=== PATIENT | male | born 1975 | race Caucasian/White ===

== ENCOUNTER 2018-04-08 19:35 | Inpatient (IN) | payer MEDICAID ==
--- NOTE | 2018-04-08 20:19 | EDPHY ---
General - History Smoking Status: Never smoked Time Seen by Provider: 04/08/18 19:51 Narrative: CHIEF COMPLAINT: Leg pain, fever HISTORY OF PRESENT ILLNESS: Patient presents with complaints of right leg pain, redness and swelling. He says he fell approximately 1 month ago, sustaining injuries to the arms and legs. Soon after, he felt he developed infection the area. He was seen by primary care physician 3-4 weeks ago and prescribed doxycycline for infection. He took this for 10-14 days to completion. He was feeling well until 3 days after that. At that time he developed some increasing redness, pain and swelling, primarily to the right lower extremity. There are other small areas as well to the left lower extremity and right knee. He has no difficulty bending the knee but he has significant pain when he attempts to ambulate on the right leg. No numbness or tingling. No fever. He does feel sick. No other associated complaints or modifying factors. Tetanus up-to-date REVIEW OF SYSTEMS: Ten systems reviewed and are negative unless otherwise noted in the HPI PCP: [facility] SPECIALISTS: None PAST MEDICAL HISTORY: Hypertension PAST SURGICAL HISTORY: No recent surgeries. Remote orthopedic surgery SOCIAL HISTORY: Admits to daily heroin use. Denies tobacco use. Occasional alcohol use. Occasional marijuana use. FAMILY HISTORY: noncontributory EXAMINATION General Appearance: Alert, no distress . Well-developed well-nourished Head: normocephalic, atraumatic Eyes: Pupils equal and round, no conjunctival pallor or injection ENT, Mouth: Mucous membranes moist Neck: Normal inspection, supple, non-tender Respiratory: Lungs are clear to auscultation Cardiovascular: Regular rate and rhythm. No murmur Gastrointestinal: Abdomen is soft and nontender Back: non-tender, no bony abnormalities Neurological: A&O, nonfocal, normal gait Skin: Warm and dry. Multiple tattoos. There is extensive cellulitic change the right anterior lower extremity below the knee. There is non circumferential cellulitis. There is edema to right lower extremity. There is several other small areas circumscribed cellulitis to the right and left lower extremities without any fluctuance or signs of abscess. I do not appreciate any evidence of septic joint to the lower extremities. Extremities: Edema and mild tenderness of the right calf and lower extremity generally. There is no bony tenderness of the knee. He has full flexion extension of the right knee both passive and active without pain. Neurovascular intact distal to the areas of cellulitic changes Psychiatric: Mood and affect normal DIFFERENTIAL DIAGNOSES: Including but not limited to cellulitis, DVT, abscess, septic joint, sepsis MDM: 8:10 p.m. Cellulitis of the right lower extremity with tachycardia and outpatient failure of oral antibiotics. He will likely need admission the hospital for failure of outpatient therapy at a minimum. I will rule out DVT with ultrasound. Blood cultures and lactic acid are ordered. IV fluid will be administered if he does meet criteria for sepsis. IV antibiotics will be administered. He is in no acute distress. 8:50 p.m. Case discussed with Dr. Schneider. She recommends Ancef for the cellulitis. I have canceled by original order a vancomycin, and he has not yet received any of this. 9:10 p.m. Plain films of the knee and tib-fib have been read by radiologist as swelling but no acute osseous findings. 9:23 p.m. This case discussed with radiologist Dr. Becerra. There is no DVT from the popliteal superior. The calf veins are not visualized due to edema. At this time the patient is still attempting to have a lactic acid drawn as he has a very difficult IV access. 9:35 p.m. Initial lactic acid is within normal limits at 1.4. waiting hospitalist phone call at this time for admission 9:40 p.m. Case discussed with hospitalist Dr. Pedro. He will admit the patient to his service. He is admitted in stable condition. There is a wound culture from the right knee. I have also label the margins cellulitis. SUPERVISION: Patient was independently examined, but I discussed the case with my primary supervising physician Dr. Schneider. (Russell Santiago) - Diagnostics Imaging Results: Imaging Impressions Extremity Venous Study 04/08/18 20:19 Impression: 1. No deep venous thrombosis in the right lower extremity through the popliteal vein. 2. The calf veins cannot be well delineated secondary to calf edema. Findings discussed with Russell Santiago PAC at 21:22 hour, 04/08/2018. Knee X-Ray 04/08/18 20:19 Impression: 1. Soft tissue swelling about the knee. Otherwise, normal right knee series. 2. Soft tissue swelling about the leg. Otherwise, normal right tibia and fibula series. Tibia/Fibula X-Ray 06/24/18 20:19 Impression: 1. Soft tissue swelling about the knee. Otherwise, normal right knee series. 2. Soft tissue swelling about the leg. Otherwise, normal right tibia and fibula series. Discussion: This patient was seen and examined by me. He presents with cellulitis of the right lower extremity. On exam he has extensive cellulitis on the anterior aspect of the lower leg as well as cellulitis over the anterior aspect of the knee. There is a tiny pustule on the knee. This area was unroofed and a wound culture was taken by Russell Santiago. He meets SIRS criteria with tachycardia and leukocytosis. Initial lactate is normal. Blood cultures were drawn. Ancef 2 g IV given. (Lupe Schneider) - Objective Vital Signs: Initial Vital Signs Temperature (C) 98.1 F 04/08/18 19:40 Heart Rate 104 H 04/08/18 19:40 Respiratory Rate 18 04/08/18 19:40 Blood Pressure 149/80 H 04/08/18 19:40 O2 Sat (%) 96 04/08/18 19:40 O2 Delivery Mode Room Air Allergies/Adverse Reactions: No Known Allergies Allergy (Verified 04/08/18 19:40) Home Medications: Medication Instructions Recorded Lisinopril [Lisinopril] 10 mg PO DAILY 04/08/18 Laboratory Results: Laboratory Results 04/08/18 21:05 04/08/18 21:05 04/08/18 04/08/18 04/08/18 22:33 21:20 21:20 WBC RBC Hgb Hct MCV MCH MCHC RDW Plt Count MPV Neut % (Auto) Lymph % (Auto) [place] % (Auto) Eos % (Auto) Baso % (Auto) Nucleat RBC Rel Count Absolute Neuts (auto) Absolute Lymphs (auto) Absolute Monos (auto) Absolute Eos (auto) Absolute Basos (auto) Absolute Nucleated RBC Immature Gran % Immature Gran # ESR PT Pending REJ INR Pending REJ APTT Pending REJ VBG Lactic Acid 1.4 mmol/L mmol/L (0.7-2.1) Sodium Potassium Chloride Carbon Dioxide Anion Gap BUN Creatinine Estimated GFR Glucose Calcium Total Bilirubin C-Reactive Protein 04/08/18 04/08/18 21:05 21:05 WBC 13.20 10^3/uL H 10^3/uL (3.80-9.50) RBC 4.95 10^6/uL 10^6/uL (4.40-6.38) Hgb 13.1 g/dL L g/dL (13.7-17.5) Hct 41.2 % % (40.0-51.0) MCV 83.2 fL fL (81.5-99.8) MCH 26.5 pg L pg (27.9-34.1) MCHC 31.8 g/dL L g/dL (32.4-36.7) RDW 13.6 % % (11.5-15.2) Plt Count 238 10^3/uL 10^3/uL (150-400) MPV 10.2 fL fL (8.7-11.7) Neut % (Auto) 70.3 % % (39.3-74.2) Lymph % (Auto) 17.1 % % (15.0-45.0) [place] % (Auto) 9.8 % % (4.5-13.0) Eos % (Auto) 2.0 % % (0.6-7.6) Baso % (Auto) 0.3 % % (0.3-1.7) Nucleat RBC Rel Count 0.0 % % (0.0-0.2) Absolute Neuts (auto) 9.28 10^3/uL H 10^3/uL (1.70-6.50) Absolute Lymphs (auto) 2.26 10^3/uL 10^3/uL (1.00-3.00) Absolute Monos (auto) 1.29 10^3/uL H 10^3/uL (0.30-0.80) Absolute Eos (auto) 0.27 10^3/uL 10^3/uL (0.03-0.40) Absolute Basos (auto) 0.04 10^3/uL 10^3/uL (0.02-0.10) Absolute Nucleated RBC 0.00 10^3/uL 10^3/uL (0-0.01) Immature Gran % 0.5 % % (0.0-1.1) Immature Gran # 0.06 10^3/uL 10^3/uL (0.00-0.10) ESR 54 MM/HR H MM/HR (0-15) PT INR APTT VBG Lactic Acid Sodium 133 mEq/L L mEq/L (135-145) Potassium 4.6 mEq/L mEq/L (3.3-5.0) Chloride 98 mEq/L mEq/L (97-110) Carbon Dioxide 23 mEq/l mEq/l (22-31) Anion Gap 12 mEq/L mEq/L (8-16) BUN 16 mg/dL mg/dL (7-23) Creatinine 0.9 mg/dL mg/dL (0.7-1.3) Estimated GFR > 60 Glucose 100 mg/dL mg/dL (70-100) Calcium 8.5 mg/dL mg/dL (8.5-10.4) Total Bilirubin 0.6 mg/dL mg/dL (0.1-1.4) C-Reactive Protein 179.0 mg/L H mg/L (<10.0) Medications Given: Discontinued Medications Vancomycin/Sodium Chloride (Vancomycin 1 Gm (Premix)) 250 mls @ 250 mls/hr IV EDNOW ONE PRN Reason: Protocol Stop: 04/08/18 21:23 Last Admin: 04/08/18 20:51 Dose: Not Given Sodium Chloride (Ns) 1,000 mls @ 0 mls/hr IV EDNOW ONE; Wide Open PRN Reason: Protocol Stop: 04/08/18 20:59 Last Admin: 04/08/18 21:35 Dose: 1,000 mls Cefazolin Sodium/Dextrose (Ancef 2 Gm) 100 mls @ 200 mls/hr IV EDNOW ONE Stop: 04/08/18 21:59 Last Admin: 04/08/18 21:33 Dose: 100 mls Oxycodone/Acetaminophen (Percocet 5/325) 2 tab PO EDNOW ONE Stop: 04/08/18 22:10 Last Admin: 04/08/18 22:27 Dose: 2 tab Departure - Departure Disposition: [facility] Acute Clinical Impression: Cellulitis of right leg without foot Condition: Good Referrals: Xochitl Mathis, PAC [Primary Care Provider] - As per Instructions
[2018-04-08] MEDS ORDERED: VANCOMYCIN HCL/NORMAL SALINE 250 ML IV ONE (20:24)
[2018-04-08] MEDS ORDERED: ceFAZolin 2 GM in NS 100 ML IV ONE (20:49)
[2018-04-08] MEDS ORDERED: NS 1,000 ML IV ONE (20:58)
[2018-04-08 21:11] LABS: PLATELET COUNT 238 10^3/uL (150-400)
[2018-04-08] MEDS ORDERED: ceFAZolin 2 GM/DEXTROSE 100 ML IV ONE (21:30)
[2018-04-08] MEDS ORDERED: OXYCODONE/APAP 5/325 TAB PO ONE (22:09)
[2018-04-08] MEDS ORDERED: ONDANSETRON 4 MG/2 ML VIAL IVP PRN (22:17)
[2018-04-08] MEDS ORDERED: ACETAMINOPHEN 325 MG TAB PO PRN (22:17)
[2018-04-08] MEDS ORDERED: HYDROmorphONE/DILAUDID 1 MG/ML INJ IVP PRN (22:17)
[2018-04-08] MEDS ORDERED: ONDANSETRON DISINTEGRATING 4 MG TAB PO PRN (22:17)
--- NOTE | 2018-04-08 22:29 | PDGENHP ---
History and Physical - Chief Complaint leg pain and swelling - History of Present Illness 42 yo patient Heroin smoker p/w right leg pain, redness and swelling. He says he fell approximately 1 month ago, sustaining injuries to the arms and legs. Soon after, he felt he developed infection the area. He was seen by primary care physician 3-4 weeks ago and prescribed doxycycline for infection. He took this for 10-14 days to completion. He was feeling well until 3 days after that. At that time he developed some increasing redness, pain and swelling, primarily to the right lower extremity. There are other small areas as well to the left lower extremity and right knee, left arm. He has no difficulty bending the knee but he has significant pain when he attempts to ambulate on the right leg. No numbness or tingling. No fever. He does feel sick. No other associated complaints or modifying factors. no cp, sob, n/v/d The ED started Ancef He has a hx of MRSA He says his roommate recently had a MRSA infection PCP: [facility] PAST MEDICAL HISTORY: Hypertension PAST SURGICAL HISTORY: No recent surgeries. Remote orthopedic surgery SOCIAL HISTORY: Admits to daily heroin use. Denies tobacco use. Occasional alcohol use. Occasional marijuana use. FAMILY HISTORY: noncontributory DATA: Leukocytosis present VSS, no hypotension or tachycardia Lactic acid is normal CRP is elevated There is no DVT of the RLE visualized through the popliteal veins. The calf veins are not visualized due to edema Plain films of the knee and tib-fib c/w soft tissue swelling but no acute osseous findings. History Information - Allergies/Home Medication List Allergies/Adverse Reactions: No Known Allergies Allergy (Verified 04/08/18 19:40) Home Medications: Lisinopril [Lisinopril] 10 mg PO DAILY 04/08/18 [Last Taken 04/08/18] I have personally reviewed and updated: medical history, social history - Social History Smoking Status: Never smoked Review of Systems Review of Systems: ROS: 10pt was reviewed & negative except for what was stated in HPI & below Physical Exam Physical Exam: Temp Pulse Resp BP Pulse Ox 36.7 C 99 18 140/78 H 96 04/08/18 19:40 04/08/18 22:01 04/08/18 22:01 04/08/18 22:01 04/08/18 22:01 Constitutional: no apparent distress Eyes: PERRL, EOMI Ears, Nose, Mouth, Throat: moist mucous membranes Cardiovascular: regular rate and rhythym, no murmur, rub, or gallop, edema (RLE edema) Respiratory: no respiratory distress Gastrointestinal: normoactive bowel sounds, soft, non-tender abdomen Skin: warm, other (cellulitis invovling the RLE and right knee. Furuncles throughout the RLE, LLE, Left forearm at various stages of healing) Musculoskeletal: full muscle strength Neurologic: AAOx3 Psychiatric: interacting appropriately, not anxious, not encephalopathic Lymph, Heme, Immunologic: No petechiae Lab Data & Imaging Review 04/08/18 21:05 04/08/18 21:05 WBC 13.20 10^3/uL (3.80-9.50) H 04/08/18 21:05 RBC 4.95 10^6/uL (4.40-6.38) 04/08/18 21:05 Hgb 13.1 g/dL (13.7-17.5) L 04/08/18 21:05 Hct 41.2 % (40.0-51.0) 04/08/18 21:05 MCV 83.2 fL (81.5-99.8) 04/08/18 21:05 MCH 26.5 pg (27.9-34.1) L 04/08/18 21:05 MCHC 31.8 g/dL (32.4-36.7) L 04/08/18 21:05 RDW 13.6 % (11.5-15.2) 04/08/18 21:05 Plt Count 238 10^3/uL (150-400) 04/08/18 21:05 MPV 10.2 fL (8.7-11.7) 04/08/18 21:05 Neut % (Auto) 70.3 % (39.3-74.2) 04/08/18 21:05 Lymph % (Auto) 17.1 % (15.0-45.0) 04/08/18 21:05 [place] % (Auto) 9.8 % (4.5-13.0) 04/08/18 21:05 Eos % (Auto) 2.0 % (0.6-7.6) 04/08/18 21:05 Baso % (Auto) 0.3 % (0.3-1.7) 04/08/18 21:05 Nucleat RBC Rel Count 0.0 % (0.0-0.2) 04/08/18 21:05 Absolute Neuts (auto) 9.28 10^3/uL (1.70-6.50) H 04/08/18 21:05 Absolute Lymphs (auto) 2.26 10^3/uL (1.00-3.00) 04/08/18 21:05 Absolute Monos (auto) 1.29 10^3/uL (0.30-0.80) H 04/08/18 21:05 Absolute Eos (auto) 0.27 10^3/uL (0.03-0.40) 04/08/18 21:05 Absolute Basos (auto) 0.04 10^3/uL (0.02-0.10) 04/08/18 21:05 Absolute Nucleated RBC 0.00 10^3/uL (0-0.01) 04/08/18 21:05 Immature Gran % 0.5 % (0.0-1.1) 04/08/18 21:05 Immature Gran # 0.06 10^3/uL (0.00-0.10) 04/08/18 21:05 ESR 54 MM/HR (0-15) H 04/08/18 21:05 APTT 66.0 SEC (23.0-38.0) H 04/08/18 21:20 VBG Lactic Acid 1.4 mmol/L (0.7-2.1) 04/08/18 21:20 Sodium 133 mEq/L (135-145) L 04/08/18 21:05 Potassium 4.6 mEq/L (3.3-5.0) 04/08/18 21:05 Chloride 98 mEq/L (97-110) 04/08/18 21:05 Carbon Dioxide 23 mEq/l (22-31) 04/08/18 21:05 Anion Gap 12 mEq/L (8-16) 04/08/18 21:05 BUN 16 mg/dL (7-23) 04/08/18 21:05 Creatinine 0.9 mg/dL (0.7-1.3) 04/08/18 21:05 Estimated GFR > 60 04/08/18 21:05 Glucose 100 mg/dL (70-100) 04/08/18 21:05 Calcium 8.5 mg/dL (8.5-10.4) 04/08/18 21:05 Total Bilirubin 0.6 mg/dL (0.1-1.4) 04/08/18 21:05 C-Reactive Protein 179.0 mg/L (<10.0) H 04/08/18 21:05 Assessment & Plan Assessment: #RLE, Right knee Cellulitis #Furuncles, Folliculitis involving RLE, R knee, LLE, L forearm #Pedal Edema of right leg -no e/o of DVT at popliteal veins and proximal. Distal veins not well visualized #Heroin use #Hx of MRSA #Right knee pain Plan: Start Vancomycin ID to see If right knee pain is not significantly better, would consider Ortho consult trend CRP tomorrow As for the pedal edema, a distal clot is not r/o. There is no e/o of proximal clot. I have started proph Lovenox but not therapeutic. If swelling does not improve, would consider starting treatment dose. Would wait to see if an Ortho consult is needed and/or intervention first Pain mgmt
[2018-04-08] MEDS ORDERED: NS 1,000 ML IV SCH (22:30)
[2018-04-08 22:48] LABS: INR 0.98 (0.83-1.16); PROTIME(PATIENT) 13.2 SEC (12.0-15.0)
[2018-04-09] MEDS: oxyCODONE IR 5 MG TAB PO PRN ×5 (00:21→21:34)
[2018-04-09] MEDS: VANCOMYCIN 1.5 GM in NS 250 ML IV SCH ×2 (01:57→13:28)
[2018-04-09 05:27] LABS: PLATELET COUNT 255 10^3/uL (150-400)
[2018-04-09] MEDS: LISINOPRIL 10 MG TAB PO SCH (08:36)
[2018-04-09] MEDS: ENOXAPARIN 40 MG/0.4 ML SYR SC SCH (08:37)
--- NOTE | 2018-04-09 10:21 | GCON ---
[f rep st] CONSULTATION INPATIENT INFECTIOUS DISEASE CONSULTATION REFERRING PHYSICIAN: Moiz Pedro MD REASON FOR REFERRAL: Right lower extremity cellulitis and multiple folliculitis and dermatitic lesio ns. HISTORY OF PRESENT ILLNESS: Patient is a 42-year-old male who was admitted to [facility] through the emergency room on the evening of 04/08/2018. The patient related developing multiple areas of redness and inflammation over his arms and legs after a fall approximately 1 month ago. The patient was treated by his primary care physician approximately 3 weeks ago with oral doxycycline fo r 14 days. He did well during this treatment course, but 3 days after completion, he began to show i ncreased redness, pain, and swelling primarily to lesions in the right lower extremity, but also the right calf itself. He also noticed lesions on the left lower extremity were inflamed also, but they were not as bad as the right lower extremity. Patient does have an ongoing smoked heroin habit. He does not inject. The patient was started on IV vancomycin overnight. This morning, he states he fee ls somewhat better. The redness has retreated from drawn borders. PAST MEDICAL HISTORY: Hypertension. PAST SURGICAL HISTORY: Remote orthopedic surgery. ANTIBIOTICS: Vancomycin. ALLERGIES: The patient has no known drug allergies. SOCIAL HISTORY: The patient lives with a roommate. He has a 10-year-old daughter whom he occasional ly takes care of. Denies any tobacco use. Only occasional alcohol or marijuana use. FAMILY HISTORY: Reviewed but noncontributory. REVIEW OF SYSTEMS: Other than that detailed above in the History of Present Illness, a comprehensive 10-system review is negative. PHYSICAL EXAMINATION: VITAL SIGNS: Temperature maximum 37.2, temperature current 37.2. Heart rate is 97. Respiratory rate is 16. Blood pressure is 122/81. GENERAL: The patient is a well-formed, w ell-nourished male in no acute distress. He is not toxic in appearance. He is alert and oriented x3 . He is pleasant in demeanor. HEENT: Normocephalic, atraumatic. No scleral icterus. No drainage from the nares. Eyes, lids and conjunctivae are within normal limits. Pupils are equal and round bi laterally. NECK: Supple. No meningismus. LUNGS: Clear to auscultation bilaterally, with good eff ort. HEART: Regular rate and rhythm. No significant peripheral edema. SKIN: Warm and dry to the touch. The patient has multiple small, follicular lesions primarily on the legs. These lesions have a small eschar in the center and are surrounded by 5-8 mm of erythema. The erythema has retracted f rom drawn borders last night. Mildly tender to palpation. There is no fluctuance or drainage. MUSC ULOSKELETAL: No muscle belly tenderness is noted. No joint line effusion or arthritis seen. NEURO: Cranial nerves 2-12 seem to be intact. Peripheral sensation seems intact in extremities. LABORATORY DATA: The patient has a CBC dated 04/09/2018 shows a white blood cell count of 10.9, hemo globin of 12.7, hematocrit of 38.9, and platelet count of 255. Differential is within normal limits. Serum chemistries on 04/09 are all within normal limits. Creatinine 0.9. C-reactive protein is 16 2.8. MICROBIOLOGIC DATA: Patient has blood cultures dated 04/08, which are pending. Swab of the knee wou nd is pending on culture. Gram stain shows no organisms or polymorphonuclear white cells. ASSESSMENT: Multiple areas of dermatitis and folliculitis. This is in conjunction with a right calf cellulitis. Covering with vancomycin monotherapy is reasonable. This does look like it could be as sociated with Staphylococcus aureus. Patient's roommates do have a history of methicillin-resistant Staphylococcus aureus. The patient does have an ongoing drug use problem. We will continue the vanco mycin monotherapy and follow clinically going forward. Will talk with hospitalists about management of pain medications. PLAN: 1. Vancomycin monotherapy ongoing. Will check his vancomycin trough prior to third dose. 2. Follow clinical course and pain levels. /[id number]/MODL
--- NOTE | 2018-04-09 11:31 | PDMN ---
Medical Necessity Medical necessity: Pt meets IP criteria per MD ; est los >2 mn for eval/tx of RLE cellulitis, multiple folliculitis & dermatitic lesions w/edema, pain & failed outpatient abx therapy; requiring further workup/monitoring, ID consult, IV abx, IVFs, pain control & possible Ortho consult; hx heroin use, MRSA; per H& P & order 04/08/18
[2018-04-09] MEDS ORDERED: HYDROmorphone HCL/NS 0.5 MG/ML SYR IVP PRN (16:30)
--- NOTE | 2018-04-09 16:43 | ASMTCASEMG ---
Living Arrangements What is your living Answers: With Other (Not Family) arrangement? Who do you live with? Type Of Residence What kind of residence do Answers: Apartment you live in? Discharge Plan Comments Coordination Status Comments Notes: Pt is a 42 y/o man admitted for leg pain and swelling. Pt is a heroin user. ID is following this case. Therapies have been ordered and awaiting recommendations. Needs are TBD at this time. Pts PCP is at [facility]. Pt has a hx of MRSA and reports that his roommate recently had a MRSA infection. CM to follow. Plan: TBD Date Signed: 04/09/2018 04:42 PM Electronically Signed By:ABHINAV Dee
--- NOTE | 2018-04-09 17:46 | HOSPPROG ---
Hospitalist Progress Note Assessment/Plan: Subjective Follow-up on right lower extremity cellulitis. Patient states his pain is well controlled with the current pain medication regimen and place he does state that he smokes heroin on a daily basis. I did discuss with him that I would have her social work consult to provide information on local resources for opiate addiction. Case was also reviewed with Dr. Almaraz. We did talk about the possibility of consulting orthopedics for joint aspiration but the current time we suspected the swelling around the right knee is superficial and will continue to follow with current antibiotic therapy. Objective Vital signs as detailed below Exam General-patient appears comfortable he is awake alert conversant no acute distress Heart-no murmurs appreciated regular on exam Lungs-Clear to auscultation with normal respiratory effort Abdomen-soft nontender nondistended no Velasquez catheter in place Extremities-notable edema and erythema of the right lower extremity Skin superficial skin abrasions of the right lower extremity with surrounding erythema the margins appear to have receded from bili a shins done yesterday Labs as detailed below Assessment and plan Cellulitis-will significant around the right knee and also affecting the right lower extremity. He does seem to be getting better with the current vancomycin. Cultures from the wound have returned this afternoon showing MRSA. Blood cultures are currently pending. I Appreciate Dr. Almaraz assistance on the case. Right knee pain-patient states good pain control with the current pain regimen and place. I will not make any adjustments today. Heroin use patient states that he smokes heroin on a daily basis. I did put a consult request was for short-term provide information on community resources for opiate addiction. Hypertension-controlled looks good at the current time. Continue with current lisinopril. DVT prophylaxis-Lovenox Disposition-await final from blood cultures to help determine the duration of antibiotic therapy. Likely will be able to return home once medically ready. Objective: Vital Signs Temp Pulse Resp BP Pulse Ox 36.8 C 100 18 123/76 H 92 04/09/18 15:25 04/09/18 15:25 04/09/18 15:25 04/09/18 15:25 04/09/18 15:25 Microbiology 04/08/18 22:40 Gram Stain - Final Knee - Swab Laboratory Results 04/09/18 04:31 04/09/18 04:31 04/08/18 04/09/18 04/10/18 05:59 05:59 05:59 Intake Total 1750 Output Total 900 Balance 1750 -900 PT 13.2 SEC (12.0-15.0) 04/08/18 22:33 INR 0.98 (0.83-1.16) 04/08/18 22:33 ICD10 Worksheet Patient Problems: Problems Problem Status Onset Cellulitis of right leg without foot Acute
[2018-04-10] MEDS: VANCOMYCIN 1.5 GM in NS 250 ML IV SCH ×2 (00:56→14:18)
[2018-04-10] MEDS: oxyCODONE IR 5 MG TAB PO PRN ×2 (02:29→07:53)
[2018-04-10 05:20] LABS: PLATELET COUNT 294 10^3/uL (150-400)
[2018-04-10] MEDS: LISINOPRIL 10 MG TAB PO SCH (07:54)
[2018-04-10] MEDS: ENOXAPARIN 40 MG/0.4 ML SYR SC SCH (07:54)
[2018-04-10 09:48] LABS: HEPATITIS C ANTIBODY TOTAL NEGATIVE (NEGATIVE); HIV TYPE 1 AND 2 NEGATIVE (NEGATIVE)
--- NOTE | 2018-04-10 11:12 | ASMTCMCOM ---
CM Note CM Note Notes: PT rec home. Medicaid drug resource list left with pt. When pt was asked if he was interested in drug treatment pt did not answer and said he hopes to discharge today. Email sent to Eli Benitez for referral to [facility]. LUCIUS to follow. Date Signed: 04/10/2018 11:11 AM Electronically Signed By:CHRISTIANO Huerta
--- NOTE | 2018-04-10 11:50 | PCMIDPN ---
Assessment/Plan: Assessment/Plan: * Multifocal small skin abscesses with concomitant right lower extremity cellulitis due to MRSA: Approximately 2 mL of purulent material expressed from right lateral knee. No findings to suggest septic arthritis. Blood cultures remain no growth to date. Patient notes that he may leave AMA later this afternoon. Discussed with him that he still needs IV antibiotics based on degree of cellulitis and inflammatory change. He expressed understanding of this. If he does leave, doxycycline could be utilized based on susceptibility profile with 100 mg twice daily times 7 days total. Recommend he apply warm compresses to right lateral knee several times per day. Will arrange for follow -up in our office later this week for repeat assessment in event he chooses to leave hospital today. 04/10/18 11:47 04/10/18 11:52 Subjective: Patient complains of persistent pain over right lateral knee and right lower extremity. Notes that he wants to leave the hospital later this afternoon as he has to care for his daughter. Objective: Vital Signs Temp Pulse Resp BP Pulse Ox 36.9 C 78 16 103/67 79 L 04/10/18 07:49 04/10/18 07:49 04/10/18 07:49 04/10/18 07:49 04/10/18 07:49 Microbiology 04/08/18 22:40 Gram Stain - Final Knee - Swab Laboratory Results 04/10/18 04:45 04/10/18 04:45 04/09/18 04/10/18 04/11/18 05:59 05:59 05:59 Intake Total 1750 2650 Output Total 900 Balance 1750 1750 ESR 54 MM/HR (0-15) H 04/08/18 21:05 C-Reactive Protein 89.6 mg/L (<10.0) H 04/10/18 04:45 Vancomycin # 2 Wound culture MRSA Blood cultures x2 no growth - Physical Exam General Appearance: alert, no apparent distress EENT: No conjunctival petechiae Respiratory: lungs clear, No respiratory distress Cardiac/Chest: regular rate, rhythm, No systolic murmur Extremities: inflammation (Right lateral knee with significant erythema and central scab with fluctuance from which approximately 2 mL of purulence was expressed; no pain with range of motion of knee; smaller area more medially over the knee without expressible purulence; 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
[2018-04-10 15:42] VITALS: BP 122/81
--- NOTE | 2018-04-10 18:37 | PDDCSUM ---
Discharge Summary Discharge Summary: DISCHARGE DIAGNOSES: -cellulitis of right leg with abscess -daily heroin use by smoking -chronic hypertension CONSULTANTS: Dr. Rob Almaraz and Dr. Ronak Escalona PROCEDURES: Doppler ultrasound of leg without evidence of DVT HOSPITAL COURSE SUMMARY: This patient is leaving the hospital against medical advice today. He has been counseled that he has ongoing infection that may not be treatable with antibiotics alone and that as abscesses that should be trained. It also also recommended that he needs ongoing IV antibiotics at this time. He is counseled that he could be at risk for worsening infection, loss of limb, sepsis, or other complications. He is unwilling to stay here any further. PENDING TEST RESULTS: None MEDICATION CHANGES: The patient is offered a prescription for doxycycline 100 mg twice daily 20. Tablets which she has accepted FOLLOW-UP PLAN: Is recommended that he follow up with Dr. Escalona at [facility] or with his primary care physician, although is unclear what he will do in terms of follow- up Is also recommended that he avoid use of heroin or other illicit drugs and narcotics, again unclear what he will do at this time Greater than 35 minutes bedside and care coordination time today
--- NOTE | 2018-04-10 18:43 | HOSPPROG ---
Hospitalist Progress Note Assessment/Plan: DIAGNOSES: Acute cellulitis of right leg with multifocal abscesses, MRSA grown and culture from his leg Ongoing use of heroin, smoked, daily Chronic hypertension The patient has 1 large area of cellulitis that is improving with antibiotics in the lower leg. However there are clearly areas around the neither worsening and I believe this is due to ongoing abscesses that are not being drained there. I recommended to the patient that he allowed me to drain these abscesses which are fairly superficial but is not willing to do that at this time. I recommended that the patient continue IV antibiotics here with elevation is leg and nursing care for his skin wounds but he at this point does not think he is likely to stay. He is asked that he have time to discuss with his family and friends so that he can consider his options. I answered all the questions that I could answer for him. I answered questions for his friend who is at the bedside with him as well. I have discussed this case in detail today with Dr. Ronak Escalona who agrees that the patient should have ongoing IV antibiotics at this time here in the hospital. PLANS: Ongoing IV antibiotics as recommended Drainage of abscesses around his knee is recommended The patient will consider his options will check back with him SUBJECTIVE: Ongoing pain around his knee in particular No sweats or chills OBJECTIVE Vitals reviewed: Stable without fever Exam: alert oriented skin warm dry color ok The area of cellulitis at the calf is notably improved However the knee has 2 areas of markedly increased cellulitis, both with central abscesses both containing fluctuant fluid at the time of my examination. I was unable to express any of this fluid during my examination. I did review this with Dr. Ronak Ecsalona who had seen the patient earlier in the day and who had expressed a small amount of fluid from 1 of these abscesses at the knee. resps not labored lungs clear BSs heart regular abd soft nondistended nontender, bowel sounds present limbs warm, no edema iv site ok Microbiology: Wound cultures growing a bit MRSA organism with some sensitivity to other antibiotics Laboratory data: White count still elevated at 10,000 thousand unchanged from yesterday CBC otherwise stable Metabolic panel stable C reactive protein still markedly elevated in the 80s HIV and hepatitis C are negative Objective: Vital Signs Temp Pulse Resp BP Pulse Ox 36.5 C 80 16 122/81 H 98 04/10/18 15:39 04/10/18 15:39 04/10/18 15:39 04/10/18 15:39 04/10/18 15:39 Microbiology 04/08/18 22:40 Gram Stain - Final Knee - Swab Wound Culture - Final MRSA Laboratory Results 04/10/18 04:45 04/10/18 04:45 04/09/18 04/10/18 04/11/18 06:59 06:59 06:59 Intake Total 1750 2650 250 Output Total 900 Balance 1750 1750 250 PT 13.2 SEC (12.0-15.0) 04/08/18 22:33 INR 0.98 (0.83-1.16) 04/08/18 22:33 - Time Spent With Patient Time Spent with Patient: greater than 35 minutes Time Spent with Patient: Greater than 35 minutes spent on this patients care, greater than 50% of time spent counseling, educating, and coordinating care regarding the above mentioned plan. ICD10 Worksheet Patient Problems: Problems Problem Status Onset Cellulitis of right leg without foot Acute
== END 2018-04-10 18:37 | disposition left against medical advice (07) | DRG 383 ==
LOC: F3N 23:30
PROVIDERS: ADMIT Family Medicine; ATTEND Family Medicine
DX: L03.115 Cellulitis of right lower limb (principal); B95.62 Methicillin resistant Staphylococcus aureus infection as the cause of diseases classified elsewhere; L02.415 Cutaneous abscess of right lower limb; L30.9 Dermatitis, unspecified; F11.90 Opioid use, unspecified, uncomplicated; I10 Essential (primary) hypertension; Z86.14 Personal history of Methicillin resistant Staphylococcus aureus infection; L73.9 Follicular disorder, unspecified
CPT/HCPCS: 80307; 96374; 97161-GP; 97165-GO; G0472; G0480; J0690; J1650; J3370